=== PATIENT | female | born 1990 | race Caucasian/White ===

== ENCOUNTER → 2016-03-11 | Outpatient (CLI) | payer OTHER ==
[~2016-03-11] MED LIST: APRI1 EACH PO; GLYBURIDE1.25 MG PO; SYNTHROID125 MCG PO
== END | disposition home or self-care (01) ==
LOC: RAD 13:00
DX: E07.9 Disorder of thyroid, unspecified (principal); Z86.39 Personal history of other endocrine, nutritional and metabolic disease
CPT/HCPCS: 76536